=== PATIENT | male | born 1955 | race Caucasian/White ===

== ENCOUNTER 2018-06-12 18:43 | Emergency (ER) | payer OTHER ==
[~2018-06-12] VITALS: Ht 167.6 cm; Wt 81.6 kg
[2018-06-12 18:43] VITALS: BP 137/89
== END 2018-06-12 19:36 | disposition home or self-care (01) ==
LOC: ER 18:43
DX: J01.90 Acute sinusitis, unspecified (principal); E78.00 Pure hypercholesterolemia, unspecified; Z60.2 Problems related to living alone